=== PATIENT | female | born 2000 | race Caucasian/White ===

== ENCOUNTER 2025-01-25 07:46 | Day surgery (SDC) | payer OTHER ==
[~2025-01-25] VITALS: Ht 162.6 cm; Wt 62.1 kg
[~2025-01-25 07:46] MED LIST: FLUC150T9 PO
[2025-01-25] MEDS ORDERED: GLYCOPYRROLATE INJ 0.2 MG/ML 2 ML VIAL As Ordered ONE (08:39)
[2025-01-25] MEDS ORDERED: propofoL 200 MG/20 ML VIAL As Ordered ONE (08:39)
[2025-01-25] MEDS ORDERED: LIDOCAINE 2% 100MG/5ML SDV (FOR ANES.) As Ordered ONE (08:39)
[2025-01-25 09:00] VITALS: TEMP 97.6
[2025-01-25 09:20] VITALS: BP 115/58; O2SAT 99
== END 2025-01-25 09:23 | disposition home or self-care (01) ==
LOC: M OPP 07:46
PROVIDERS: ATTEND Internal Medicine Gastroenterology
DX: K58.1 Irritable bowel syndrome with constipation (principal); K64.8 Other hemorrhoids; Z79.899 Other long term (current) drug therapy
CPT/HCPCS: 45378; J1596